=== PATIENT | female | born 2000 | race Hispanic/Latino ===

== ENCOUNTER 2020-10-27 15:53 | Emergency (ER) | payer MEDICAID, OTHER ==
[~2020-10-27] VITALS: Ht 162.6 cm; Wt 65.8 kg
[~2020-10-27 15:53] MED LIST: PREN-196 PO
[2020-10-27 15:59] VITALS: BP 126/79
[2020-10-27 17:20] LABS: APPEARANCE,URINE Cloudy (CLEAR); BILIRUBIN,URINE Negative (NEGATIVE); COLOR,URINE Yellow (YELLOW); GLUCOSE, URINE (UA) Negative (NEGATIVE); KETONES,URINE Negative (NEGATIVE); LEUKOCYTE ESTERASE ,URINE Negative (NEGATIVE); NITRATE,URINE Negative (NEGATIVE); OCCULT BLOOD,URINE Negative (NEGATIVE); PROTEIN,URINE Negative (NEGATIVE)
[2020-10-27 17:27] LABS: RBC,URINE 0-1 /HPF (0-1); WBC,URINE 0-1 /HPF (0-1)
[2020-10-27 17:28] LABS: BACTERIA,URINE Few /HPF (None Seen); SQUAMOUS EPITHELIAL CELL,UR Few /HPF (0-2)
== END 2020-10-27 19:06 | disposition home or self-care (01) ==
LOC: EDH 15:53
DX: O26.891 Other specified pregnancy related conditions, first trimester (principal); R30.9 Painful micturition, unspecified; R39.15 Urgency of urination; E03.9 Hypothyroidism, unspecified; Z3A.01 Less than 8 weeks gestation of pregnancy
CPT/HCPCS: 81001; 81025

== ENCOUNTER 2020-11-02 19:06 | Emergency (ER) | payer OTHER ==
[~2020-11-02] VITALS: Ht 162.6 cm; Wt 65.8 kg
[2020-11-02 19:10] VITALS: BP 113/71
== END 2020-11-02 19:11 | disposition left against medical advice (07) ==
LOC: EDH 19:06
DX: J02.9 Acute pharyngitis, unspecified (principal); Z53.21 Procedure and treatment not carried out due to patient leaving prior to being seen by health care provider

== ENCOUNTER 2020-11-20 09:12 | Emergency (ER) | payer OTHER ==
[~2020-11-20] VITALS: Ht 162.6 cm; Wt 59.0 kg
[2020-11-20 09:15] VITALS: BP 103/44
[2020-11-20] MEDS ORDERED: DIPHENHYDRAMINE HCL 25 MG CAPSULE PO ONE (10:30)
[2020-11-20] MEDS ORDERED: SOLU-MEDROL 125MG VIAL IM ONE (10:30)
[2020-11-20] MEDS ORDERED: DIPHENHYDRAMINE HCL 25 MG CAPSULE ONE (10:31)
[2020-11-20] MEDS ORDERED: SOLU-MEDROL 125MG VIAL ONE (10:31)
[2020-11-20] MEDS ORDERED: DIPH25 PO (10:39)
[2020-11-20 11:49] VITALS: BP 128/75
== END 2020-11-20 11:50 | disposition home or self-care (01) ==
LOC: EDH 09:12
DX: O9A.211 Injury, poisoning and certain other consequences of external causes complicating pregnancy, first trimester (principal); T78.40XA Allergy, unspecified, initial encounter; R60.0 Localized edema; Z3A.01 Less than 8 weeks gestation of pregnancy; Z98.890 Other specified postprocedural states; X58.XXXA Exposure to other specified factors, initial encounter
CPT/HCPCS: 96372; 99283; J2930; Q0163

== ENCOUNTER 2021-02-15 11:48 | Observation (INO) | payer MEDICAID ==
[~2021-02-15] VITALS: Ht 160 cm; Wt 69.4 kg
[~2021-02-15 11:48] MED LIST changes: +DIPH25 PO
[2021-02-15 11:50] VITALS: BP 104/68
[2021-02-15 12:45] LABS: APPEARANCE,URINE Cloudy (CLEAR); BILIRUBIN,URINE Negative (NEGATIVE); COLOR,URINE Yellow (YELLOW); GLUCOSE, URINE (UA) Negative (NEGATIVE); KETONES,URINE Trace mg/dL (NEGATIVE); LEUKOCYTE ESTERASE ,URINE Negative (NEGATIVE); NITRATE,URINE Positive (NEGATIVE); OCCULT BLOOD,URINE Negative (NEGATIVE); PROTEIN,URINE Negative (NEGATIVE)
[2021-02-15 12:48] LABS: BACTERIA,URINE Many /HPF (None Seen); RBC,URINE 0-1 /HPF (0-1); SQUAMOUS EPITHELIAL CELL,UR Rare /HPF (0-2); WBC,URINE 0-1 /HPF (0-1)
[2021-02-15 12:51] LABS: AMPHET/METH SCREEN,URINE NEGATIVE (NEGATIVE); BARBITURATE SCREEN, URINE NEGATIVE (NEGATIVE); BENZODIAZEPINES SCREEN,URINE NEGATIVE (NEGATIVE); CANNABINOID SCREEN,URINE NEGATIVE (NEGATIVE); COCAINE SCREEN,URINE NEGATIVE (NEGATIVE); OPIATE SCREEN,URINE NEGATIVE (NEGATIVE); PHENCYCLIDINE SCREEN,URINE NEGATIVE (NEGATIVE)
[2021-02-15] MEDS ORDERED: LACTATED RINGERS 1000ML IV SCH (14:30)
== END 2021-02-15 15:15 | disposition home or self-care (01) ==
LOC: EDH 11:48 → LDH 11:49
PROVIDERS: ADMIT Obstetrics & Gynecology; ATTEND Obstetrics & Gynecology
DX: O26.892 Other specified pregnancy related conditions, second trimester (principal); R10.9 Unspecified abdominal pain; Z3A.20 20 weeks gestation of pregnancy
CPT/HCPCS: 80305; 81001; 87077; 87088; 87186; 96360; G0378 ×3; G0379; J7120

== ENCOUNTER 2021-04-02 09:38 | Observation (INO) | payer MEDICAID ==
[~2021-04-02] VITALS: Ht 160 cm; Wt 71.2 kg
[2021-04-02 09:40] VITALS: BP 106/60
[2021-04-02 10:13] LABS: APPEARANCE,URINE CLOUDY (CLEAR); BILIRUBIN,URINE NEGATIVE (NEGATIVE); COLOR,URINE YELLOW (YELLOW); GLUCOSE, URINE (UA) NEGATIVE (NEGATIVE); KETONES,URINE NEGATIVE (NEGATIVE); LEUKOCYTE ESTERASE ,URINE MODERATE (NEGATIVE); NITRATE,URINE POSITIVE (NEGATIVE); OCCULT BLOOD,URINE NEGATIVE (NEGATIVE); PROTEIN,URINE TRACE mg/dL (NEGATIVE); UROBILINOGEN,URINE 0.2 mg/dL (0.2-1.0)
[2021-04-02 10:36] LABS: BACTERIA,URINE Many /HPF (None Seen); RBC,URINE 0-1 /HPF (0-1); WBC,URINE TNTC /HPF (0-1)
[2021-04-02] MEDS ORDERED: CEFAZOLIN SODIUM 1 GM VIAL IVP SCH (11:00)
[2021-04-02] MEDS ORDERED: LACTATED RINGERS 1000ML 1,000 ML IV SCH (11:00)
[2021-04-02] MEDS ORDERED: ACETAMINOPHEN WITH CODEINE 1 TAB TAB PO PRN (11:00)
== END 2021-04-02 15:51 | disposition home or self-care (01) ==
LOC: EDH 09:38 → LDH 09:39
PROVIDERS: ADMIT Obstetrics & Gynecology; ATTEND Obstetrics & Gynecology
DX: O23.42 Unspecified infection of urinary tract in pregnancy, second trimester (principal); O99.891 Other specified diseases and conditions complicating pregnancy; M54.50 Low back pain, unspecified; O26.892 Other specified pregnancy related conditions, second trimester; R10.9 Unspecified abdominal pain; Z3A.26 26 weeks gestation of pregnancy
CPT/HCPCS: 81001; 87077; 87088; 87186; 96361; 96374; G0378 ×6; G0379; J0690; J7120 ×2; 96360

== ENCOUNTER 2021-09-09 03:26 | Emergency (ER) | payer MEDICAID ==
[~2021-09-09] VITALS: Ht 160 cm; Wt 68.5 kg
[~2021-09-09 03:26] MED LIST changes: +ACET-2079 PO; -DIPH25 PO; +FERS325 PO
[2021-09-09 03:45] VITALS: BP 104/63
[2021-09-09] MEDS ORDERED: ONDANSETRON 4MG INJ IVP ONE (04:00)
[2021-09-09] MEDS ORDERED: 0.9%NACL 1000ML 1,000 ML IV ONE (04:00)
[2021-09-09 04:01] LABS: BASOPHILS % (AUTO) 0.5 % (0.0-5.0); EOSINOPHILS % (AUTO) 1.6 % (0.0-8.0); HEMATOCRIT 38.8 % (36-48); LYMPHOCYTES % (AUTO) 20.4 % (21.0-51.0); MEAN CORPUSCULAR HEMOGLOBIN 26.8 pg (27.0-33.0); MEAN CORPUSCULAR HGB CONC 31.2 g/dL (32.0-36.0); MEAN CORPUSCULAR VOLUME 85.8 fL (79-99); MONOCYTES % (AUTO) 7.4 % (3.0-13.0); NEUTROPHILS % (AUTO) 69.6 % (40.0-77.0); PLATELET COUNT (AUTO) 292 K/uL (130-400); RED BLOOD CELL COUNT(AUTO) 4.52 MIL/uL (4.00-5.50); RED CELL DISTRIBUTION WIDTH 15.4 % (11.0-15.5); WHITE BLOOD COUNT (AUTO) 8.8 K/uL (4.8-10.8)
[2021-09-09 04:03] LABS: APPEARANCE,URINE Clear (CLEAR); BILIRUBIN,URINE Negative (NEGATIVE); COLOR,URINE Yellow (YELLOW); GLUCOSE, URINE (UA) Negative (NEGATIVE); KETONES,URINE Trace mg/dL (NEGATIVE); LEUKOCYTE ESTERASE ,URINE Negative (NEGATIVE); NITRATE,URINE Negative (NEGATIVE); OCCULT BLOOD,URINE Negative (NEGATIVE); PROTEIN,URINE Trace mg/dL (NEGATIVE)
[2021-09-09 04:14] LABS: HCG,QUAL RESULT NEGATIVE (NEGATIVE)
[2021-09-09 04:15] LABS: RBC,URINE 0-1 /HPF (0-1); WBC,URINE 0-1 /HPF (0-1)
[2021-09-09 04:16] LABS: BACTERIA,URINE None Seen /HPF (None Seen); MUCUS,URINE Few LPF (None Seen); SQUAMOUS EPITHELIAL CELL,UR Few /HPF (0-2)
[2021-09-09 04:19] LABS: CREATININE 0.7 mg/dL (0.5-1.5); POTASSIUM 3.7 mmol/L (3.5-5.1)
[2021-09-09 04:25] LABS: ALBUMIN 4.3 g/dL (3.5-5.0); BILIRUBIN,TOTAL 0.2 mg/dL (0.2-1.0); TOTAL PROTEIN, SERUM 8.4 g/dL (6.0-8.3)
[2021-09-09] MEDS ORDERED: MORPHINE 4 MG SYG IVP ONE (04:30)
[2021-09-09] MEDS ORDERED: ONDA4TAB10 PO (05:21)
[2021-09-09] MEDS ORDERED: LOPE2 PO (05:21)
== END 2021-09-09 05:28 | disposition home or self-care (01) ==
LOC: EDH 03:26
DX: K52.9 Noninfective gastroenteritis and colitis, unspecified (principal); E86.0 Dehydration; Z79.899 Other long term (current) drug therapy; Z98.890 Other specified postprocedural states
CPT/HCPCS: 36415; 80053; 81001; 81025; 82270; 82550; 83690; 85025; 96361; 96374; 96375; 99284; J2270; J2405; J7030

== ENCOUNTER 2021-12-14 03:18 | Emergency (ER) | payer MEDICAID ==
[~2021-12-14] VITALS: Ht 160 cm; Wt 68.9 kg
[~2021-12-14 03:18] MED LIST changes: +LOPE2 PO; +ONDA4TAB10 PO
[2021-12-14] MEDS ORDERED: LIDOCAINE HCL 2% VISCOUS 15 ML UDCUP ONE (03:32)
[2021-12-14] MEDS ORDERED: MAG/ALUM/SIMETH 30 ML UDCUP ONE (03:32)
[2021-12-14] MEDS ORDERED: DICYCLOMINE HCL 10 MG/5 ML ML PO ONE (03:32)
[2021-12-14 03:37] VITALS: BP 131/75
[2021-12-14] MEDS ORDERED: MAG-55 PO (03:37)
== END 2021-12-14 03:45 | disposition home or self-care (01) ==
LOC: EDH 03:18
DX: T17.208A Unspecified foreign body in pharynx causing other injury, initial encounter (principal); X58.XXXA Exposure to other specified factors, initial encounter; Y93.89 Activity, other specified; Y92.89 Other specified places as the place of occurrence of the external cause; Y99.8 Other external cause status

== ENCOUNTER 2022-10-31 11:40 | Emergency (ER) | payer MEDICAID ==
[~2022-10-31] VITALS: Ht 160 cm; Wt 65.8 kg
[~2022-10-31 11:40] MED LIST changes: +MAG-55 PO
[2022-10-31 12:44] LABS: APPEARANCE,URINE CLEAR (CLEAR); BILIRUBIN,URINE NEGATIVE (NEGATIVE); COLOR,URINE YELLOW (YELLOW); GLUCOSE, URINE (UA) NEGATIVE (NEGATIVE); KETONES,URINE NEGATIVE (NEGATIVE); LEUKOCYTE ESTERASE ,URINE 25 Leu/uL (NEGATIVE); NITRATE,URINE NEGATIVE (NEGATIVE); PH,URINE 5.5 (5.0-8.0); PROTEIN,URINE 10 mg/dL (NEGATIVE); UROBILINOGEN,URINE 0.2 mg/dL (0.2-1.0)
[2022-10-31 12:49] LABS: HCG,QUALITATIVE URINE NEGATIVE (NEGATIVE)
[2022-10-31] MEDS ORDERED: ACETAMINOPHEN 500 MG TABLET PO ONE (13:00)
[2022-10-31 13:01] LABS: BACTERIA,URINE RARE /HPF (None Seen); MUCUS,URINE MANY LPF (None Seen); SQUAMOUS EPITHELIAL CELL,UR MOD /HPF (0-2)
[2022-10-31] MEDS ORDERED: KETOROLAC 30MG VIAL (30MG/ML) IM ONE (13:30)
[2022-10-31] MEDS ORDERED: PENICILLIN G BENZATHINE LA 1.2 MILUNITS/2 ML SYG IM ONE (13:30)
[2022-10-31] MEDS ORDERED: AMOX1TAB16 PO (13:57)
[2022-10-31 14:02] VITALS: BP 111/61
== END 2022-10-31 14:02 | disposition home or self-care (01) ==
LOC: EDH 11:40
DX: J02.0 Streptococcal pharyngitis (principal); Z20.822 Contact with and (suspected) exposure to COVID-19
CPT/HCPCS: 99283; 87635; 87880; 87804 ×2; 81001; 81025; C9803

== ENCOUNTER 2024-11-05 05:59 | Emergency (ER) | payer BC, MEDICAID ==
[~2024-11-05] VITALS: Ht 162.6 cm; Wt 72.6 kg
[~2024-11-05 05:59] MED LIST changes: +AMOX1TAB16 PO; +ONDA-243 PO; -ONDA4TAB10 PO
[2024-11-05 06:25] LABS: HCG,QUALITATIVE URINE NEGATIVE (NEGATIVE)
[2024-11-05 06:27] LABS: RAPID GROUP A STREP negative (NEGATIVE)
[2024-11-05 06:37] LABS: COVID19 (SARS ANTIGEN RAPID) PRESUMPTIVE NEGATIVE (NEGATIVE); INFLUENZA TYPE A Negative For Type A (NEGATIVE); INFLUENZA TYPE B Negative For Type B (NEGATIVE)
[2024-11-05 06:49] LABS: ADD UA MICROSCOPIC YES; APPEARANCE,URINE CLEAR (CLEAR); BILIRUBIN,URINE NEGATIVE (NEGATIVE); COLOR,URINE COLORLESS (YELLOW); GLUCOSE, URINE (UA) NEGATIVE (NEGATIVE); KETONES,URINE NEGATIVE (NEGATIVE); LEUKOCYTE ESTERASE ,URINE NEGATIVE Leu/uL (NEGATIVE); NITRATE,URINE NEGATIVE (NEGATIVE); OCCULT BLOOD,URINE LARGE (NEGATIVE); PROTEIN,URINE NEGATIVE (NEGATIVE); UROBILINOGEN,URINE 0.2 mg/dL (0.2-1.0)
[2024-11-05 06:53] LABS: BACTERIA,URINE RARE /HPF (None Seen); SQUAMOUS EPITHELIAL CELL,UR RARE /HPF (0-2); WBC,URINE 0-1 /HPF (0-1)
[2024-11-05 07:05] VITALS: BP 117/77; PULSE 81; RESP 26; TEMP 100.7; O2SAT 98
--- NOTE | 2024-11-05 07:09 | NUR ---
REPORT GIVEN TO AMOL YOUNG AT THIS TIME
[2024-11-05] MEDS ORDERED: AMOX1TAB16 PO (07:33)
[2024-11-05] MEDS ORDERED: FLUT16H NS (07:33)
--- NOTE | 2024-11-05 07:34 | ERN ---
General Chief Complaint: Fever Stated Complaint: FEVER Time Seen by MD: 07:29 Source: patient History of Present Illness Initial Comments Patient is a 24-year-old female coming in to be evaluated for fever. Per patient she was working outside in the cold came back inside started feeling chills. She states that this happened yesterday. She also states that she has no cough no body aches earache no sore throat no other symptoms. Allergies: Coded Allergies: No Known Drug Allergies (Unverified Allergy, Unknown, 07/09/16) Home Meds Active Scripts Amoxicillin/Potassium Clav (Amox Tr-K Clv 875-125 mg Tab) 1 Each Tablet, 1 EACH PO BID for 10 Days, #20 TAB Prov:ASHLEY GALLEGO V [employer]INE [employer]ER LEADER 10/31/22 Mag Hydrox/Al Hydrox/Simeth (Maalox Maximum Strength Susp) 355 Ml Oral.susp, 10 ML PO QID, #150 ML Prov:TATO SHARIF MD 12/14/21 Loperamide HCl (Imodium) 2 Mg Cap, 2 MG PO AD, #15 CAP 0 Refills Take 2 capsules after the first diarrhea stool. Take 1 capsule after each diarrhea stool afterwards. Do not take more than 8 capsules in 24 hours Prov:HOUSTON MARTÍNEZ MD 09/09/21 Ondansetron (Ondansetron Odt) 4 Mg Tab.rapdis, 4 MG PO TID PRN for NAUSEA, #15 TAB 0 Refills Prov:HOUSTON MARTÍNEZ MD 09/09/21 Reported Medications Ferrous Sulfate (Ferrous Sulfate) 325 Mg Ectab, 325 MG PO DAILY, #30 TAB.EC 06/26/21 Acetaminophen with Codeine (Acetaminophen-Cod #3 Tablet) 1 Each Tablet, 1-2 EACH PO Q6H, #30 TAB 06/26/21 Vit No.124/Iron/FA ( Vitamin Tablet) 1 Each Tablet, 1 EACH PO DAILY, TAB 07/09/16 Past Medical History Past Medical History: Hypothyroid Past Surgical History: Surgical History Other: C SECTION Social History Social History: Negative, Lives with family Female( History) History: Not Applicable LMP: Nov 05, 2024 : 2 Para: 2 Aborts: 0 ROS Dictation CONSTITUTIONAL: No chills, no fever, no weakness, no diaphoresis, no malaise. HEAD/FACE: No signs of trauma. EENT: No eye pain, no blurred vision, no tearing, no double vision, no ear pain, no ear discharge, no nose pain, no nasal congestion, no throat pain, no throat swelling, no mouth pain. RESPIRATORY: No cough, no orthopnea, no SOB, no stridor, no wheezing. CARDIOVASCULAR: No chest pain, no edema, no palpitations, no syncope. GASTROINTESTINAL/ABDOMINAL: No abdominal pain, no constipation, no diarrhea, no nausea, no vomiting. GENITOURINARY: No abnormal discharge, no dysuria, no frequent urination, no hematuria. No complaints of pain in the genitals. MUSCULOSKELETAL: No back pain, no gout, no joint pain, no joint swelling, no muscle pain, no muscle stiffness, no neck pain. INTEGUMENTARY: No change in color, no change in hair/nails, no dryness, no lesion, no lumps, no rash. NEUROLOGICAL/PSYCH: No anxiety, not depressed, no emotional problem, no headache, no numbness, no pre-existing deficit, no history of seizures, no tremors, no weakness. HEMATOLOGIC/LYMPHATIC: Not anemic, no history of blood clots, no apparent bleeding, no bruising, glands not swollen. All Systems Negative, Except as Noted. Physical Exam Physical Exam Dictation VITAL SIGNS: Reviewed. GENERAL APPEARANCE: Alert, oriented x3, no acute distress, obese. HEAD AND FACE: Non-traumatic. EYES: PERRL, pink conjunctivas, eyelid no trauma, anterior chamber clear. EARS: Pinnas intact and no signs of trauma or erythema. Ear canals clear and no discharge. TMs no erythema. NOSE: No discharge, no bleeding. Nasal turbinate swelling bilateral OROPHARYNX: Mouth normal, teeth no caries, tongue pink. Pharynx clear, no erythema. Tonsils no exudates, no abscesses noted. Mucous membrane moist. NECK: Supple, non-tender, no thyromegaly, no masses, no JVD, no bruits. BREAST: Deferred. CHEST: No tenderness, no crepitus, no paradoxical movement, no retractions. LUNGS: Clear, well-ventilated, symmetric, no rales, no wheezing, no rhonchi, no stridor, good breath sounds bilaterally. HEART: Regular rate, regular rhythm, no murmur, no gallops. VASCULAR: No peripheral edema. ABDOMEN: Soft, positive bowel sounds, nondistended, no guarding, nontender, no rebound, no masses no hepatomegaly, no splenomegaly, no Earl's sign, no hernias. RECTAL: Deferred. GENITAL: Deferred. NEUROLOGICAL: Normal speech, gross motor function intact, gross sensory function intact. MUSCULOSKELETAL: Neck nontender, full range of motion, back nontender, full range of motion. EXTREMITIES: Nontender, full range of motion. SKIN: Color pink, dry, no turgor, no rash, no lacerations, no abrasions, no contusions. LYMPHATICS: Deferred. Results Laboratory and Microbiology Lab and Micro Result Laboratory Tests Test 11/05/24 06:02 11/05/24 06:10 Influenza Type A Antigen Negative For Type A Influenza Type B Antigen Negative For Type B SARS-CoV-2 Antigen (Rapid) PRESUMPTIVE NEGATIVE Group A Streptococcus Rapid negative (NEGATIVE) Urine Color COLORLESS (YELLOW) Urine Appearance CLEAR (CLEAR) Urine pH 6.0 (5.0-8.0) Urine Specific [place] 1.004 (1.001-1.031) Urine Protein NEGATIVE mg/dL (NEGATIVE) Urine Glucose (UA) NEGATIVE mg/dL (NEGATIVE) Urine Ketones NEGATIVE mg/dL (NEGATIVE) Urine Occult Blood LARGE (NEGATIVE) H Urine Nitrate NEGATIVE (NEGATIVE) Urine Bilirubin NEGATIVE mg/dL (NEGATIVE) Urine Urobilinogen 0.2 mg/dL (0.2-1.0) Urine Leukocyte Esterase NEGATIVE Helen/uL Urine RBC 2-5 /HPF (0-1) H Urine WBC 0-1 /HPF (0-1) Urine Squamous Epithelial Cells RARE /HPF (0-2) Urine Bacteria RARE /HPF (None Seen) Urine HCG, Qualitative NEGATIVE (NEGATIVE) Labs Reviewed?: Yes MDM MDM: Differential diagnosis: URI, sinusitis, cough, fever, Rationale: Tests considered and ordered secondary to shared decision making include: Previous outside records reviewed: Old ER visits. Risk of complication and/or morbidity or mortality of patient management: None Medications-Per medication reconciliation Need for hospitalization: Patient does not meet criteria for hospitalization. Patient is a 24-year-old female coming in to be evaluated for fever. On physical exam nasal turbinate swelling mild congestion bilateral maxillary sinuses. I then this patient is asymptomatic physical exam of the abdomen no discomfort lungs are clear no other concerns. Patient will be discharged with a diagnosis of sinusitis. ED Course Orders Procedure Category Date Status Time Covid19 (Sars Antigen LAB 11/05/24 Complete Rapid) 06:04 Influenza Type A & B, LAB 11/05/24 Complete Rapid 06:04 Rapid (Group A Strep) LAB 11/05/24 Complete 06:04 Urinalysis Profile LAB 11/05/24 Complete 06:05 ,Urine Test LAB 11/05/24 Complete 06:05 Acetaminophen 325 Tab PHA 11/05/24 Logged (Tylenol 325mg Tab 07:30 Ibuprofen 200 Mg PHA 11/05/24 Logged Tablet (Motrin) 07:30 Current Medications Medications (Trade) Dose Ordered Sig/Starr Route PRN Reason Start Time Stop Time Status Last Admin Dose Admin Acetaminophen (TYLenol 325MG TAB) 650 mg ONCE ONCE PO 11/05/24 07:30 11/05/24 07:31 UNV Ibuprofen (moTRIN) 200 mg ONCE ONCE PO 11/05/24 07:30 11/05/24 07:31 UNV Vital Signs Date Time Temp Pulse Resp B/P (MAP) Pulse Ox O2 Delivery O2 Flow Rate FiO2 11/05/24 06:28 100.9 85 17 115/76 100 Room Air* 0 21 11/05/24 06:00 100.8 87 18 130/85 100 Room Air 0 DX & DISP Disposition: Discharge Departure Impression: Primary Impression: Sinusitis Condition: Stable Scripts Fluticasone Propionate (Flonase Nasal [place]) 50 Mcg/Actuation [place] 2 SPRAY NS DAILY, #16 GM 0 Refills Prov: JIGNESH BRODERICK MD 11/05/24 Amoxicillin/Potassium Clav (Amox Tr-K Clv 875-125 mg Tab) 875 Mg-125 Mg Tablet 1 TAB PO BID for 10 Days, #20 TAB 0 Refills Prov: JIGNESH BRODERICK MD 11/05/24 Additional Instructions: FOLLOW-UP WITH PRIMARY CARE PROVIDER IN 1 TO 2 DAYS. TAKE MEDICATIONS DIRECTED HERE IN THE EMERGENCY ROOM. OKAY TO CONTINUE HOME MEDICATIONS UNLESS OTHERWISE DISCUSSED DURING YOUR VISIT IN THE EMERGENCY ROOM TODAY. RETURN TO YOUR NEAREST EMERGENCY ROOM IF SYMPTOMS WORSEN OR IF THERE IS NO IMPROVEMENT. CALL 911 IF YOU NEED IMMEDIATE ASSISTANCE. TAKE TYLENOL [id number] NEEDED AND IF NO CONTRAINDICATIONS ARE PRESENT. INCREASE ORAL HYDRATION. A WOUND CULTURE OR URINE CULTURE WAS ORDERED HERE IN THE EMERGENCY ROOM DEPARTMENT PLEASE FOLLOW-UP WITH PRIMARY CARE PROVIDER AND ADVISE THEM TO GET REPORTS FROM OUR FACILITY. IF YOU HAD ANY BERONICA WRAP/SPLINTS THAT WERE APPLIED HERE, PLEASE DO NOT REMOVE THEM UNTIL YOU SEE YOUR PRIMARY CARE OR SPECIALTY. Referrals: Referrals: SELF,REFERRAL (PCP) EMILY GIRON MD Time of Disposition: 07:32 JIGNESH BRODERICK MD Nov 05, 2024 07:34
[2024-11-05] MEDS: acetaMINOPHEN 325 MG TAB PO ONE (07:37)
[2024-11-05 07:38] VITALS: TEMP 100.7
[2024-11-05] MEDS: ibuPROFEN 200 MG TAB PO ONE (07:38)
== END 2024-11-05 08:00 | disposition home or self-care (01) ==
LOC: EDH 05:59
DX: J32.9 Chronic sinusitis, unspecified (principal); E03.9 Hypothyroidism, unspecified; Z20.822 Contact with and (suspected) exposure to COVID-19; Z79.899 Other long term (current) drug therapy; Z98.890 Other specified postprocedural states
CPT/HCPCS: 81001; 81025; 87426; 87804; 87880; 99283